=== PATIENT | female | born 1960 | race African-American/Black ===

== ENCOUNTER 2023-01-17 17:53 | Emergency (ER) | payer MEDICAID ==
[~2023-01-17] VITALS: Ht 167.6 cm; Wt 69.0 kg
[2023-01-17] MEDS ORDERED: IBUPROFEN 400MG TABLET PO ONE (19:00)
[2023-01-17] MEDS ORDERED: ACETAMINOPHEN 325MG TABLET PO ONE (19:00)
[2023-01-17] MEDS ORDERED: IBUP-2028 MT (19:03)
[2023-01-17 19:20] VITALS: BP 126/65
== END 2023-01-17 19:22 | disposition left against medical advice (07) ==
LOC: ER 18:02
DX: R51.9 Headache, unspecified (principal); M54.2 Cervicalgia; M25.552 Pain in left hip; M79.652 Pain in left thigh; M25.562 Pain in left knee; E11.9 Type 2 diabetes mellitus without complications; G89.11 Acute pain due to trauma; V43.54XA Car driver injured in collision with van in traffic accident, initial encounter; Y93.89 Activity, other specified; Y92.414 Local residential or business street as the place of occurrence of the external cause
CPT/HCPCS: 99283